=== PATIENT | female | born 1985 | race Caucasian/White ===

== ENCOUNTER → 2017-06-01 | Day surgery (SDC) | payer OTHER ==
[~2017-06-01] VITALS: Ht 160 cm; Wt 62.7 kg
[~2017-06-01] MED LIST: *morphine SULFATE 8 MG/ML PERIprocedure ONLY ONE; ACETAMINOPHEN 1000 MG/100 ML VIAL IV ONE; APRITAB PO; BIRTH CONRTOL PO; BUPIVACAINE/EPINEPHRINE 0.25% 50 ML VIAL ONE; CETI-1 PO; CHLORHEXIDINE GLUCONATE 2 % 1 PACK (2 CLOTHS) TOPICAL PRN; DEXAMETHASONE SOD PHOS 4 MG/ML VIAL ONE; DO NOT ADM ANY ANTICOAGULANT DRUGS PRN; FAMOTIDINE 20 MG/2 ML VIAL ONE; IBUP200T2 PO; IMIT50TA PO; INSULIN HUMAN REGULAR 1,000 UNITS/10 ML VIAL SQ PRN; KETOROLAC TROMETHAMINE 60 MG/2 ML (IM) VIAL IM ONE; LACTATED RINGER'S 1000 ML IV PRN; LEVO25TA4 PO; METOPROLOL TARTRATE 25 MG TAB PO PRN; MIDAZOLAM HCL 2 MG/2 ML VIAL ONE; NEOSTIGMINE 3 MG/3 ML SYR IV ONE; ONDANSETRON HCL 4 MG/2 ML VIAL IV PUSH ONE; PERC5TAB12 PO; POVIDONE IODINE 5% (ANTISEPSIS KIT) 4 APPLICATIONS EACH NARE PRN; PROP10TA6 PO; PROPOFOL 200 MG/20 ML AMP IV ONE; REFRDRO EACH EYE; SODIUM CHLORID 0.9% 500 ML IV PRN; ePHEDrine/NS 25 MG/5 ML SYR IV ONE; fentaNYL CITRATE 250 MCG/5 ML AMP ONE
[2017-06-01 09:43] VITALS: BP 149/96; PULSE 76; RESP 20; TEMP 98.6; O2SAT 99
--- NOTE | 2017-06-01 09:47 | HHI.HP ---
HPI Chief Complaint pelvic pain Date Seen: Jun 01, 2017 Time Seen: 09:15 Travel History International Travel<30 Days: No Contact w/Intl Traveler<30Days: No Known Affected Area: No History of Present Illness HPI Patient has pelvic pain and has clinical symptoms of endometriosis. History Past Medical History Medical History: Denies Significant Hx Past Surgical History Surgical History: No Previous Surgery Family History Family History: Negative Social History Alcohol Use: No Tobacco Use: No Substance Abuse: No Allergies-Medications (Allergen,Severity, Reaction): Coded Allergies: No Known Allergies (Unverified , 02/14/16) Home Meds Reported Medications Ibuprofen 200 Mg [id number] Mg PO Q4H PRN (PAIN SCALE 1 TO 10) Ref 0 05/31/17 [ Conrtol Tabs] No Conflict CheckUnknown Dose PO DAILY 05/31/17 Cetirizine HCl (Zyrtec)10 Mg Tablet1 Tab PO DAILY 05/31/17 Discontinued Reported Medications Cetirizine HCl (Zyrtec 10 Mg Tab)10 Mg Tab10 Mg PO DAILY 02/14/16 Miscellaneous ( Control Pills) Tab1 Tab PO DAILY 02/14/16 Discontinued Scripts Hydrocodone/Acetaminophen 5 mg/325 mg (Lortab 5 mg/325 mg)1 Tab1 Tab PO Q6H PRN (PAIN GREATER THAN 6) #15 TAB Prov:Rose Nance MD 02/14/16 Ibuprofen (Motrin)600 Mg [id number] Mg PO QID #21 TAB GIVE WITH FOOD Prov:Rose Nance MD 02/14/16 Ciprofloxacin Hcl (Cipro)500 Mg [id number] Mg PO BID #14 TAB Prov:Rose Nance MD 02/14/16 Review of Systems Except as stated in HPI: all other systems reviewed are Neg Physical Exam Narrative GENERAL: Well-nourished, well-developed patient. SKIN: Warm and dry. HEAD: Normocephalic and atraumatic. EYES: No scleral icterus. No injection or drainage. ENT: No nasal drainage noted. Mucous membranes pink. Airway patent. NECK: Supple, trachea midline. No JVD. CARDIOVASCULAR: Regular rate and rhythm without murmurs, gallops, or rubs. RESPIRATORY: Breath sounds equal bilaterally. No accessory muscle use. BREASTS: Bilateral exam showed no masses , no retractions, no nipple discharge. ABDOMEN/GI: Abdomen soft, non-tender, bowel sounds present, no rebound, no guarding Gravid to [-] weeks size Fundal Height: [-] GENITOURINARY: External Genitalia: intact and normal in appearance BUS glands: [-] Cervix: [-] Dilatation: [-] Effacement: [-] Station: [-] Presentation: [-] Membranes: [intact or ruptured] Uterine Contractions: [-] FHT's: Category: [-] Baseline: [-] Reactive: [-] Variability: [-] Decels: [-] EXTREMITIES: No cyanosis or edema. BACK: Nontender without obvious deformity. No CVA tenderness. NEUROLOGICAL: Awake and alert. Motor and sensory grossly within normal limits. Five out of 5 muscle strength in all muscle groups. Normal speech. Data Data Vital Signs Reviewed: Yes Orders Complete Blood Count With Diff (06/01/17 09:16) Bhcg Screen Qualitative (06/01/17 09:16) Lactated Ringer's 1000 Ml Inj (Lr 1000 M (06/01/17 09:45) Sodium Chlorid 0.9% 500 Ml Inj (Ns 500 M (06/01/17 09:45) Metoprolol Tartrate (Lopressor) (06/01/17 09:45) Povidone Iod 5% Antisepsis Kit (Betadine (06/01/17 09:45) Chlorhexidine 2% Cloth (Chlorhexidine 2% (06/01/17 09:45) Insulin Human Regular Inj (Novolin R Inj (06/01/17 09:45) Assessment/Plan Problem List: (1) Pelvic pain in female Assessment and Plan for Diagnosis Laparoscopy possible treatment of endometriosis Francisco Pagan MD Jun 01, 2017 09:47
[2017-06-01 09:58] LABS: AUTOMATED NEUTROPHIL # 4.5 TH/MM3 (1.8-7.7); BASOPHIL # 0.1 TH/MM3 (0-0.2); BASOPHIL % 1.2 % (0.0-2.0); EOSINOPHIL # 0.2 TH/MM3 (0-0.4); EOSINOPHIL % 1.9 % (0.0-4.0); HEMATOCRIT 39.1 % (35.0-46.0); HEMO FLAGS DIFF FINAL; LYMPH % 36.9 % (9.0-44.0); MEAN CELL VOLUME 86.6 FL (80.0-100.0); MEAN CORPUSCULAR HEMOGLOBIN 30.7 PG (27.0-34.0); MEAN CORPUSCULAR HGB CONC 35.5 % (32.0-36.0); MONO % 5.6 % (0.0-8.0); NEUT % 54.4 % (16.0-70.0); PLATELET COUNT 297 TH/MM3 (150-450); RED BLOOD COUNT 4.52 MIL/MM3 (4.00-5.30); RED CELL DISTRIBUTION WIDTH 12.6 % (11.6-17.2); WHITE BLOOD COUNT 8.2 TH/MM3 (4.0-11.0)
--- NOTE | 2017-06-01 12:16 | EKG ---
Date Performed: 06/01/2017 Time Performed: 10:10:36 PTAGE: 32 years EKG: Sinus rhythm WITH SINUS ARRHYTHMIA NORMAL ECG NO PREVIOUS TRACING DOCTOR: Ed Davies Interpretating Date/Time 06/01/2017 12:15:28
--- NOTE | 2017-06-01 12:27 | PD.OP ---
Operative Report Date of Surgery: Jun 01, 2017 Preoperative Diagnosis: (1) Pelvic pain in female Postoperative Diagnosis: (1) Pelvic pain in female (2) Parametrial endometriosis Procedure: DX LSC with ablation of endometriosis Anesthesia: general Surgeon: Francisco Pagan Communications Marketing Intern(s): Francisco Marcano MD Jun 01, 2017 12:27
--- NOTE | 2017-06-01 12:33 | HHI.DCPOC ---
Discharge Care Plan Diagnosis: (1) Parametrial endometriosis Report Symptoms to Your Doctor -Temperature above 100.5 degrees -Redness, of incision or excessive or foul smelling drainage -Unusual pain or calf pain -Increased vaginal bleeding -Painful or difficulty urinating -Feelings of extreme sadness or anxiety after 2 weeks Goals to Promote Your Health * To prevent worsening of your condition and complications * To maintain your health at the optimal level Directions to Meet Your Goals Take your medications as prescribed Follow your dietary instruction Follow activity as directed Ensure plenty of rest for recovery Drink fluids for hydration Keep your appointments as scheduled Take your immunizations and boosters as scheduled If your symptoms worsen call your PCP, if no PCP go to Urgent Care Center or Emergency Room Smoking is Dangerous to Your Health. Avoid second hand smoke Call the 24-hour crisis hotline for domestic abuse at Francisco Pagan MD Jun 01, 2017 12:33
[2017-06-01 13:42] VITALS: BP 110/68; PULSE 66; RESP 18; TEMP 97.9; O2SAT 98
--- NOTE | 2017-06-01 19:30 | MP ---
cc: MELISA PAGAN M.D. DATE OF SURGERY 06/01/2017 PREOPERATIVE DIAGNOSIS Pelvic pain. POSTOPERATIVE DIAGNOSIS Pelvic pain. Endometriosis on the left uterosacral ligament, the parametria. SURGERY Diagnostic laparoscopy with ablation of endometriosis on the peritoneum. SURGEON Dr. Melisa Pagan ASSOCIATE STORE DIRECTOR Reina Daniel ESTIMATED BLOOD LOSS Less than 5 cc. COMPLICATIONS None. FINDINGS Endometriosis on the left uterosacral ligament. Ovaries and fallopian tubes were normal. Anterior cul-de-sac was normal and upper abdomen was normal. PROCEDURE IN DETAIL After adequate anesthesia was assured and time-out was taken, a uterine manipulator was placed into the uterus with a HUMI type. We then proceeded to perform a diagnostic laparoscopy by placing a 5-mm trocar infraumbilical. After injection with 0.5% Marcaine with epinephrine we entered the abdomen under direct visualization, insufflated the abdomen. Suprapubic 5 mm trocar was placed. The upper abdomen was normal, lower abdomen revealed no abnormalities except for endometriosis on the left uterosacral ligament. This was cauterized with a spatula until there was no remaining endometriosis that could be seen, posterior cul-de-sac was normal. There were no adhesions except for one small band which was in the posterior cul-de-sac. This was taken down with a monopolar cautery. Good hemostasis was achieved at all areas. The procedure was ended. The patient was taken to recovery room in stable condition. The two 5 mm trocar sites were closed with 4-0 Monocryl. The patient tolerated the procedure well. MD CHELSEA Carranza/GENESIS /12:27 PM /7:17 PM
== END | disposition home or self-care (01) ==
LOC: HSDC 09:03
PROVIDERS: ATTEND Obstetrics & Gynecology
DX: R10.2 Pelvic and perineal pain (principal); N80.3 Endometriosis of pelvic peritoneum; I49.8 Other specified cardiac arrhythmias; E03.9 Hypothyroidism, unspecified; I10 Essential (primary) hypertension
CPT/HCPCS: 00840; 58662; 84703; 85025; 93005; J0131; J1100; J1885; J2250; J2270; J2405; J2710; J3010; J7120